=== PATIENT | female | born 1980 | race Caucasian/White ===

== ENCOUNTER 2020-06-04 07:51 | Inpatient (IN) ==
--- NOTE | 2020-06-04 09:27 | Obstetrical Progress Note ---
Date of Service June 04, 2020 Assessment & Plan Admission and Anticipated Discharge Date Admission Date: June 04, 2020 Subjective Induction for post dates FHR; CAT1 Ctx; Minimal VE; FT/50/post Vt @ bedside sono Starting cytotoec Results & Data ([facility]) Vital Signs (Past 12 Hours) Vital Signs Temp Pulse Resp BP 06/04/20 08:03 37.1 C 103 H 20 121/80 06/04/20 08:00 103 H 121/80
[2020-06-04] MEDS ORDERED: miSOPROStoL 50 MCG TAB PO STA (09:38)
[2020-06-04] MEDS ORDERED: Nursing to Pharmacy Communication SCH (09:45)
[2020-06-04] MEDS ORDERED: LACTATED RINGER'S 1,000 ML IV PRN (09:46)
[2020-06-04] MEDS ORDERED: OXYTOCIN 30 UNITS/500 ML BAG IV PRN (09:46)
[2020-06-04 10:08] LABS: Hematocrit (blood only) 38.4 % (37-47); Hemoglobin 13.1 g/dL (12.0-16.0); Mean Corpuscular Hemoglobin 29.8 pg (25-34); Mean Corpuscular Volume 87.5 fL (80-100); Platelet Count 127 K/uL (130-400); RDW Coefficient of Variation 14.2 % (11.5-14.5); RDW Standard Deviation 45.9 fL (36.4-46.3); Red Blood Count 4.39 M/uL (4.2-5.4); White Blood Count 9.22 K/uL (4.8-10.8)
[2020-06-04 10:15] LABS: Mean Corpuscular Hgb Conc 34.1 g/dL (32-36)
[2020-06-04] MEDS ORDERED: miSOPROStoL 50 MCG TAB PO SCH (12:00)
[2020-06-04] MEDS: miSOPROStoL 50 MCG TAB PO SCH ×2 (14:19→23:30)
[2020-06-04] MEDS ORDERED: DINOPROSTONE 10 MG INSERT PV ONE (20:56)
--- NOTE | 2020-06-04 21:16 | Obstetrical Progress Note ---
Date of Service June 04, 2020 Assessment & Plan Admission and Anticipated Discharge Date Admission Date: June 04, 2020 Subjective Pt doing well FHR; CAT1 CTx; irregular VE; 2/75/-3 Cervidil placed in avgina Results & Data ([facility]) Vital Signs (Past 12 Hours) Vital Signs Temp Pulse Resp BP 06/04/20 19:19 37.0 C 89 18 134/82 06/04/20 18:16 36.9 C 84 20 117/80 06/04/20 15:31 37.0 C 83 20 130/85 06/04/20 11:18 36.9 C 80 20 127/87
[2020-06-05] MEDS ORDERED: BUTORPHANOL TARTRATE 1 MG/ML VIAL IV PRN (02:22)
[2020-06-05] MEDS ORDERED: BUTORPHANOL TARTRATE 1 MG/ML VIAL ONE (02:26)
[2020-06-05] MEDS: miSOPROStoL 50 MCG TAB PO SCH (02:38)
[2020-06-05] MEDS ORDERED: BUPIVACAINE 0.25% 30 ML VIAL ONE (04:57)
[2020-06-05] MEDS ORDERED: ePHEDrine sulfate 50 MG/ML AMP ONE (04:57)
[2020-06-05] MEDS ORDERED: fentaNYL citrate 100 MCG/2 ML VIAL ONE (04:58)
[2020-06-05] MEDS ORDERED: fentaNYL 2MCG/ML ROPIV 1.25MG/ML 100 ML BAG EPI ONE (04:58)
--- NOTE | 2020-06-05 05:52 | Anesthesiology Consultation ---
Date of Service June 05, 2020 Assessment & Plan Chart Review Chart Review: Acceptable Risk for Labor Epidural Consults Requested none History Height/Weight Height: 5 ft 8 in Weight: 99.79 kg Allergies Allergy/AdvReac Type Severity Reaction Status Date / Time No Known Drug Allergies Allergy Unknown Verified 06/04/20 08:31 Medications Home Medications Medication Instructions Recorded Confirmed Last Taken prenat.vits,neo,mgz-cdfx-cbczo 1 tab PO DAILY 06/04/20 06/04/20 06/03/20 07:00 [ Vitamin] Active Medications Generic Name Dose Route Start Last Admin Trade Name Freq PRN Reason Stop Dose Admin Lactated Ringer's 1,000 mls @ 125 mls/hr 06/04/20 09:46 06/05/20 05:17 Lr IV 06/06/20 09:45 125 mls/hr .Q8H PRN Infusion L&D Protocol Protocol Misoprostol 50 mcg 06/04/20 14:00 06/05/20 02:38 Misoprostol 50 Mcg Tab PO 07/04/20 13:59 Not Given Q4H [place] Past Medical History Medical History No known health problems Past Surgical History Surgical History No history of previous surgery Social History Smoking Status: Never smoker Hx Alcohol Use: No Hx Substance Use: No Physical Exam Vital Signs Last Vital Signs Temp 36.9 C 06/05/20 03:06 Pulse 99 H 06/05/20 05:47 Resp 18 06/05/20 03:06 BP 114/68 06/05/20 05:46 Pulse Ox 95 06/05/20 05:47 Testing Laboratory Results 06/04/20 09:53
[2020-06-05] MEDS ORDERED: fentaNYL 2MCG/ML ROPIV 1.25MG/ML 100 ML BAG EPI PRN (05:54)
[2020-06-05] MEDS ORDERED: DiphenhydrAMINE HCL 50 MG/ML VIAL IV PRN (05:54)
[2020-06-05] MEDS ORDERED: ePHEDrine sulfate 50 MG/ML AMP IV PRN (05:54)
[2020-06-05] MEDS ORDERED: NALOXONE HCL 0.4 MG/1 ML VIAL/CARP IV PRN (05:54)
[2020-06-05] MEDS ORDERED: NALOXONE HCL 1 MG in SODIUM CHLORIDE 0.9% 1000ML 1,000 ML IV PRN (05:54)
[2020-06-05] MEDS ORDERED: MEASLES, MUMPS & RUBELLA VIRUS VIAL SQ ONE (09:45)
[2020-06-05] MEDS ORDERED: OXYCODONE/ACETAMINOPHEN 5mg/325mg TAB PO PRN (09:45)
[2020-06-05] MEDS ORDERED: OXYTOCIN 30 UNITS/500 ML BAG IV PRN (09:45)
[2020-06-05] MEDS ORDERED: BENZOCAINE 20% AER SPR 82.5 GM CAN EXT PRN (09:45)
[2020-06-05] MEDS ORDERED: HYDROCORTISONE ACETATE 25 MG SUPP PR PRN (09:45)
[2020-06-05] MEDS ORDERED: ACETAMINOPHEN 325 MG TAB PO PRN (09:45)
[2020-06-05] MEDS ORDERED: SUPERCREAM 0.870% 15 GM JAR EXT PRN (09:45)
[2020-06-05] MEDS ORDERED: DIPHTHERIA/TETANUS/PERTUSSIS 0.5 ML SYR/VIAL IM ONE (09:45)
[2020-06-05] MEDS ORDERED: bisacodyL 10 MG SUPP PR PRN (09:45)
--- NOTE | 2020-06-05 10:22 | Anesthesiology Progress Note ---
Date of Service June 05, 2020 Anesthesia Post Procedure Vital Signs Vital Signs: Temp Pulse Resp BP Pulse Ox 06/05/20 10:18 87 110/73 06/05/20 10:03 92 H 105/72 06/05/20 09:49 95 H 113/79 06/05/20 09:33 90 108/63 06/05/20 09:17 93 H 106/58 L 06/05/20 09:07 110 H 95 06/05/20 09:06 101 H 92 06/05/20 09:02 95 H 98 06/05/20 09:01 87 125/80 06/05/20 09:00 20 06/05/20 08:57 84 99 06/05/20 08:52 81 98 06/05/20 08:47 80 97 06/05/20 08:46 94 H 122/87 06/05/20 08:45 81 94 06/05/20 08:42 74 96 06/05/20 08:37 88 97 06/05/20 08:32 76 96 06/05/20 08:31 84 20 117/78 06/05/20 08:27 83 98 06/05/20 08:22 82 98 06/05/20 08:17 82 112/75 97 06/05/20 08:12 82 98 06/05/20 08:07 91 H 96 06/05/20 08:06 96 H 92 06/05/20 08:02 82 97 06/05/20 08:01 73 101/58 L 94 06/05/20 08:00 20 06/05/20 07:57 73 95 06/05/20 07:55 73 94 06/05/20 07:52 73 95 06/05/20 07:48 74 94 06/05/20 07:47 70 95 06/05/20 07:46 75 99/60 L 06/05/20 07:42 78 95 06/05/20 07:41 72 94 06/05/20 07:37 71 96 06/05/20 07:32 76 108/59 L 95 06/05/20 07:30 36.9 C 20 06/05/20 07:29 81 93 06/05/20 07:27 84 99 06/05/20 07:22 86 99 06/05/20 07:17 92 H 115/77 98 06/05/20 07:12 83 98 08/19/20 07:07 97 H 96 06/05/20 07:03 92 H 91 06/05/20 07:02 82 120/76 97 06/05/20 06:57 81 96 06/05/20 06:56 77 93 06/05/20 06:52 85 97 06/05/20 06:47 95 H 96 06/05/20 06:46 78 108/67 06/05/20 06:45 76 94 06/05/20 06:42 88 93 06/05/20 06:40 79 94 06/05/20 06:37 76 99 06/05/20 06:34 84 94 06/05/20 06:32 100 H 110/67 96 06/05/20 06:27 82 91 06/05/20 06:22 84 97 06/05/20 06:17 91 H 109/65 98 06/05/20 06:15 82 93 06/05/20 06:12 87 93 06/05/20 06:09 83 93 06/05/20 06:07 77 92 06/05/20 06:03 87 93 06/05/20 06:02 81 113/69 94 06/05/20 05:57 98 H 91 06/05/20 05:52 99 H 93 06/05/20 05:47 99 H 95 06/05/20 05:46 104 H 114/68 94 06/05/20 05:44 100 H 114/70 06/05/20 05:42 103 H 112/70 98 06/05/20 05:40 96 H 112/70 06/05/20 05:38 92 H 113/73 06/05/20 05:37 92 H 96 06/05/20 05:36 93 H 122/77 06/05/20 05:34 86 122/79 06/05/20 05:32 93 H 99 06/05/20 05:27 89 96 06/05/20 05:25 86 94 06/05/20 05:22 85 94 06/05/20 03:06 36.9 C 78 18 138/89 20 23:17 36.8 C 90 18 114/76 20 19:19 37.0 C 89 18 134/82 06/04/20 18:16 36.9 C 84 20 117/80 06/04/20 15:31 37.0 C 83 20 130/85 06/04/20 11:18 36.9 C 80 20 127/87 Transfer of Care Handoff Completed per policy Notes Mental Status: alert / awake / arousable and participated in evaluation Patient Amnestic to Procedure: Yes Nausea / Vomiting: adequately controlled Pain: adequately controlled Airway Patency, RR, SpO2: stable & adequate BP & HR: stable & adequate Hydration State: stable & adequate Anesthetic Complications: no major complications apparent and Pt Satisfied with anesthetic care
--- NOTE | 2020-06-05 11:03 | Anesthesia Procedure Note ---
Date of Service June 05, 2020 Anesthesia Post Epidural Note Vital Signs Vital Signs: Temp Pulse Resp BP Pulse Ox 36.9 C 87 20 105/66 95 06/05/20 07:30 06/05/20 10:48 06/05/20 10:33 06/05/20 10:48 06/05/20 09:07 Notes Mental Status: alert / awake / arousable and participated in evaluation Patient Amnestic to Procedure: Yes Nausea / Vomiting: adequately controlled Pain: adequately controlled Airway Patency, RR, SpO2: stable & adequate BP & HR: stable & adequate Hydration State: stable & adequate Anesthetic Complications: no major complications apparent and Pt Satisfied with anesthetic care
--- NOTE | 2020-06-05 11:23 | Delivery Summary ---
DATE OF OPERATION: 06/05/2020 TIME OF DELIVERY OF BABY: 09:07 a.m. DETAILS OF DELIVERY: The patient was found to be fully dilated and desired to push. She pushed through 2 contractions and delivered the head without difficulty and then shoulders came with the same push. Baby was handed off to the mother where mouth and nose were suctioned. Cord was clamped x2 and cut at 1 minute delay. Cord blood was obtained. Vagina and perineum were checked for lacerations. There was a second-degree laceration in the perineum. It was confirmed to be second degree with rectal exam. Excellent sphincter tone was noted. Gloves were changed. This was repaired with 0 Vicryl in a running locked fashion bringing the vaginal mucosa together, bulbocavernosus muscles together and the skin in a subcuticular fashion. Excellent hemostasis was achieved. Placenta was found to be in the vagina, delivered spontaneously as intact and complete. Uterus was explored, found to be empty. Lower segment was cleared of all clots and debris. Fundus was firm. EBL was 200 mL. Mom and baby tolerated the procedure well. Sponge, lap, needle count was correct x2. Baby was a viable female infant, Apgars 8/9, weight is pending. No complications happened and I was present during whole procedure. I attest to the content of the Intraoperative Record and any orders documented therein. Any exception s are noted below.
[2020-06-05] MEDS: IBUPROFEN 600 MG TAB PO PRN ×2 (16:30→20:17)
[2020-06-05] MEDS: DOCUSATE SODIUM 100 MG CAP PO SCH (20:15)
[2020-06-06] MEDS: IBUPROFEN 600 MG TAB PO PRN ×2 (05:36→09:25)
[2020-06-06 05:38] LABS: Hematocrit (blood only) 35.4 % (37-47); Hemoglobin 11.9 g/dL (12.0-16.0); Mean Corpuscular Hemoglobin 30.4 pg (25-34); Mean Corpuscular Hgb Conc 33.6 g/dL (32-36); Mean Corpuscular Volume 90.5 fL (80-100); Mean Platelet Volume 10.8 fL (7.4-10.4); Platelet Count 135 K/uL (130-400); RDW Coefficient of Variation 14.4 % (11.5-14.5); Red Blood Count 3.91 M/uL (4.2-5.4); White Blood Count 12.15 K/uL (4.8-10.8)
[2020-06-06] MEDS ORDERED: FERROUS SULFATE 325 MG TAB PO SCH (08:00)
[2020-06-06] MEDS ORDERED: PRENATAL VITAMIN 1 TAB PO SCH (08:00)
[2020-06-06] MEDS: DOCUSATE SODIUM 100 MG CAP PO SCH (08:09)
--- NOTE | 2020-06-06 08:23 | Obstetrical Progress Note ---
Date of Service June 06, 2020 Assessment & Plan (1) Normal course: PPD #1 Pt doing well anticipate disch tomorrow Results & Data ([facility]) Vital Signs (Past 12 Hours) Vital Signs Temp Pulse Resp BP Pulse Ox 06/06/20 03:35 36.8 C 88 14 112/74 95 06/05/20 23:20 37 C 94 H 16 103/70 95
[2020-06-06] MEDS ORDERED: bisacodyL 5 MG TABEC PO SCH (20:00)
== END 2020-06-06 11:42 | disposition home or self-care (01) | DRG 807 ==
LOC: 4S1 07:51 → 4S2 06-05 12:48